=== PATIENT | female | born 1950 | race Caucasian/White ===

== ENCOUNTER 2020-10-08 19:48 | Emergency (ER) | payer OTHER ==
[2020-10-08 21:06] LABS: HEMOGLOBIN 12.9 gm/dl (12.3-15.3); RED BLOOD COUNT 4.35 M/UL (4.00-5.10)
[2020-10-08 21:32] LABS: BUN/CREATININE RATIO 18 (0-10)
[2020-10-08] MEDS ORDERED: ZOFRAN ODT 4 MG4 MG GT (22:18)
== END 2020-10-08 22:30 | disposition home or self-care (01) ==
LOC: ER1 19:48
PROVIDERS: Family Medicine
DX: S19.9XXA Unspecified injury of neck, initial encounter (principal); N13.2 Hydronephrosis with renal and ureteral calculous obstruction; X58.XXXA Exposure to other specified factors, initial encounter
CPT/HCPCS: 70450; 80053; 81001; 82550; 82553; 83690; 84484; 85025; 85610; 99283

== ENCOUNTER → 2021-01-07 | Outpatient (CLI) | payer OTHER ==
[~2021-01-07] MED LIST: ZOFRAN ODT 4 MG4 MG GT
== END ==
LOC: EMI 13:45
DX: G45.9 Transient cerebral ischemic attack, unspecified (principal); R20.0 Anesthesia of skin; R29.898 Other symptoms and signs involving the musculoskeletal system
CPT/HCPCS: 70551

== ENCOUNTER → 2021-02-04 | Outpatient (CLI) | payer OTHER | LOC: EXRD 01-21 14:00 | DX: M85.80 Other specified disorders of bone density and structure, unspecified site (principal); M81.0 Age-related osteoporosis without current pathological fracture | CPT/HCPCS: 77080 ==

== ENCOUNTER 2021-08-15 07:56 | Observation (INO) | payer OTHER ==
[~2021-08-15] VITALS: Ht 170.2 cm; Wt 59.0 kg
[2021-08-15 08:18] LABS: HEMOGLOBIN 12.8 gm/dl (12.3-15.3); RED BLOOD COUNT 4.54 M/UL (4.00-5.10); WHITE BLOOD COUNT 18.2 K/UL (4.5-11.0)
[2021-08-15 09:05] LABS: BUN/CREATININE RATIO 22 (0-10)
[2021-08-15] MEDS ORDERED: VITAMIN D21250 MCG PO (11:48)
[2021-08-15] MEDS ORDERED: RISEDRONATE SO150 MG PO (11:48)
[2021-08-15] MEDS ORDERED: ASPIRIN EC81 MG PO (16:17)
--- NOTE | 2021-08-15 19:12 | NUR ---
@1809 CALLED REPORT TO [facility] CASSIE SINGH PT GOING TO [facility]IA [facility], REPORT CALLED, AMBULANCE CALLED AWAITING TRANSPORT TO [facility]
--- NOTE | 2021-08-15 19:13 | NUR ---
@1822 CALLED REPORT TO [facility] PT IS GOING TO ROOM [id number] TO AWAIT TRANSPORT TO [facility]
--- NOTE | 2021-08-15 20:18 | NUR ---
BROUGHT TO FLOOR VIA WHEELCHAIR FROM [facility] AT 1930. EMS ARRIVAL TO FLOOR AT 2019. IV SITES ARE BOTH INTACT AND PATIENT IS ON ROOM AIR.
== END 2021-08-15 20:21 | disposition other institution (70) ==
LOC: EDBD 07:56 → ER1 07:56 → CDU 11:11 → CCU 12:00 → PROG CARE 20:07
PROVIDERS: Emergency Medicine; ADMIT Internal Medicine
DX: I77.1 Stricture of artery (principal); I48.20 Chronic atrial fibrillation, unspecified; U07.1 COVID-19; Z86.16 Personal history of COVID-19; R55 Syncope and collapse; F17.210 Nicotine dependence, cigarettes, uncomplicated
CPT/HCPCS: 36415; 70450; 71045; 80053; 82550; 82553; 83880; 84484; 85025; 93005; 93880; 93931; 96372; 99285; G0378; J1650; J7030; Q9967; U0002